=== PATIENT | male | born 1970 | race Hispanic/Latino ===

== ENCOUNTER 2020-03-30 11:35 | Emergency (ER) | payer OTHER ==
[2020-03-30] MEDS ORDERED: Aspirin Chewable 81 MG TAB ONE (11:51)
[2020-03-30] MEDS ORDERED: Dexamethasone 10 MG/ML VIAL ONE (12:08)
[2020-03-30 12:26] LABS: #Lymphocytes 1.7 thou/uL (1.20-3.40); #Monocytes 0.6 thou/uL (0.11-0.59); #Neutrophils 2.7 thou/uL (1.40-6.50); %Basophils 0.7 % (0.0-1.0); %Eosinophils 0.3 % (0.0-10.0); %Lymphocytes 34.1 % (21.0-51.0); %Monocytes 11.4 % (0.0-10.0); %Neutrophils 53.6 % (42.0-75.0); Hemoglobin 17.4 g/dL (14.0-18.0); Mean Corpuscular HGB CONC 33.3 g/dL (32.0-36.0); Mean Platelet Volume 8.3 fL (7.4-10.4); Platelet Count 156 thou/uL (130-400); RBC Distribution Width 12.6 % (11.5-14.5); Red Blood Cell (RBC) Count 5.62 mill/uL (4.70-6.10); White Blood Cell (WBC) Count 5.1 thou/uL (4.8-10.8)
[2020-03-30 12:49] LABS: ALT (SGPT) 42 U/L (8-55); AST (SGOT) 23 U/L (5-34); Albumin 4.3 g/dL (3.5-5.0); Alkaline Phosphatase 67 U/L (40-110); Anion Gap 12 mmol/L (10-20); BUN (Urea Nitrogen) 11 mg/dL (8.9-20.6); Bilirubin, Total 0.6 mg/dL (0.2-1.2); CK (CPK) 218 U/L (30-200); Calc. Creatinine Clearance 0 mL/min (70-130); Calcium 8.7 mg/dL (7.8-10.44); Carbon Dioxide 25 mmol/L (22-29); Chloride 100 mmol/L (98-107); Estimated GFR-MDRD Greater than 90; Globulin 3.4 g/dL (2.4-3.5); Glucose 97 mg/dL (70-105); Lipase 42 U/L (8-78); Potassium 3.9 mmol/L (3.5-5.1); Protein, Total 7.7 g/dL (6.0-8.3); Sodium 133 mmol/L (136-145)
--- NOTE | 2020-03-30 12:54 | RAD ---
RADIOGRAPH CHEST 1 VIEW: DATE: 03/30/2020 HISTORY: 50-year-old male with chest pain. COMPARISON: None FINDINGS: There are no consolidations, pulmonary edema, pneumothorax, or cardiomegaly. The lateral costophrenic angles are sharp. There is a small focal linear short density at the left lower lung zone which is nonspecific, but possibly representing scar. IMPRESSION: No definitive evidence of acute cardiopulmonary disease.
--- NOTE | 2020-03-30 14:59 | CT ---
Exam: CT angiogram of the chest HISTORY: Elevated d-dimer COMPARISON: None TECHNIQUE: CT angiogram of the chest is performed in the axial plane. Three-dimensional reformatted i mages are submitted for interpretation FINDINGS: Mediastinum: No mass, lymphadenopathy or hematoma. HEART: Normal size. No significant pericardial fluid. Aorta: No aneurysm or dissection Upper solid abdominal viscera: Hypoattenuation of the liver hepatic steatosis. Possible parapelvic cy st in the upper pole the right kidney, incompletely evaluated Trachea and central bronchi: Patent Pleural spaces: No effusion Lung parenchyma: Peripheral groundglass opacities. Pneumothorax: None Osseous structures: No lytic or blastic lesions Pulmonary arteries:Adequate contrast opacification pulmonary arterial system to the level of the loba r arteries. No filling defect to suggest thromboembolism. Limited evaluation the segmental and subsegmental arteries due to timing of contrast bolus. IMPRESSION: 1. Limited evaluation pulmonary arterial system to the level of the lobar arteries. No filling defect to suggest thromboembolism 2. Predominantly peripheral groundglass opacities which is often seen in patients with atypical pneum onia, including COVID. Correlate clinically. 3. Possible parapelvic cyst in the upper pole of the left kidney, incompletely evaluated. Renal ultra sound as warranted.
[2020-03-30 15:32] LABS: Troponin I 0.014 ng/mL (< 0.028)
== END 2020-03-30 16:15 | disposition home or self-care (01) ==
LOC: ERS 11:35
DX: U07.1 COVID-19 (principal); R07.89 Other chest pain
CPT/HCPCS: 36415; 71045; 71275; 80053; 82550; 83690; 83880; 84484; 85025; 85379; 93005; 96361; 96374; J1100

== ENCOUNTER 2020-04-02 07:01 | Observation (INO) | payer OTHER ==
--- NOTE | 2020-04-02 07:35 | RAD ---
Chest one view HISTORY: Pelvic pneumonia. COMPARISON: 03/30/2020. FINDINGS: Cardiac silhouette is magnified by projection. Pulmonary vasculature upper limits of normal and accentuated by shallow inspiration. Ill-defined patchy areas of predominantly peripheral groundglass parenchymal opacity throughout each lung have progressed since the prior exam. No lobar consolidation or pleural fluid evident IMPRESSION : Interval progression of multifocal bilateral pneumonitis, consistent with worsening of COVID pneumoni a.
[2020-04-02 08:55] LABS: Hemoglobin 17.2 g/dL (14.0-18.0); Mean Corpuscular HGB CONC 33.8 g/dL (32.0-36.0); Mean Corpuscular Hemoglobin 31.3 pg (27.0-31.0); Mean Corpuscular Volume 92.5 fL (78.0-98.0); Mean Platelet Volume 7.6 fL (7.4-10.4); Platelet Count 223 thou/uL (130-400); RBC Distribution Width 12.5 % (11.5-14.5); White Blood Cell (WBC) Count 12.6 thou/uL (4.8-10.8)
[2020-04-02] MEDS ORDERED: Enoxaparin Sodium 80 MG/0.8 ML SYRINGE ONE (09:02)
[2020-04-02] MEDS ORDERED: cefTRIAXone\\ROCEPHIN 2 GM VIAL ONE (09:02)
[2020-04-02 09:11] LABS: ALT (SGPT) 38 U/L (8-55); AST (SGOT) 21 U/L (5-34); Albumin 4.1 g/dL (3.5-5.0); Alkaline Phosphatase 65 U/L (40-110); Anion Gap 14 mmol/L (10-20); BUN (Urea Nitrogen) 12 mg/dL (8.9-20.6); Bilirubin, Total 0.9 mg/dL (0.2-1.2); Calc. Creatinine Clearance 0 mL/min (70-130); Calcium 9.2 mg/dL (7.8-10.44); Carbon Dioxide 24 mmol/L (22-29); Chloride 97 mmol/L (98-107); Estimated GFR-MDRD 88; Globulin 3.6 g/dL (2.4-3.5); Glucose 153 mg/dL (70-105); Potassium 4.1 mmol/L (3.5-5.1); Protein, Total 7.7 g/dL (6.0-8.3); Sodium 131 mmol/L (136-145)
[2020-04-02] MEDS ORDERED: Enoxaparin Sodium 100 MG/ML SYRINGE ONE (09:13)
[2020-04-02 09:21] LABS: Band 18 % (5-11); Lymphocytes 4 % (21-51); MDiff Complete? YES; Monocytes 1 % (0-10); Neutrophil 76 % (42-75); Platelet Morphology Comment Appears Adequate; RBC Morphology Normal; Reactive Lymphocytes 1 % (0-10); Vacuoles SLIGHT
[2020-04-02] MEDS ORDERED: Acetaminophen 500 MG TAB ONE (10:04)
[2020-04-02] MEDS ORDERED: Azithromycin 500 MG VIAL ONE (10:04)
[2020-04-02 12:03] VITALS: BMI 31.1
[2020-04-02] MEDS ORDERED: Bisacodyl 5 MG TAB PO PRN (13:33)
[2020-04-02] MEDS ORDERED: Calcium Carbonate 500 MG ChewTAB PO PRN (13:33)
[2020-04-02] MEDS ORDERED: Senokot S 8.6-50 MG TAB PO PRN (13:33)
[2020-04-02] MEDS ORDERED: Ondansetron PF 4 MG/2 ML Vial IVP PRN (13:33)
--- NOTE | 2020-04-02 13:35 | PDOC.HOSPP ---
- Objective Vital Signs & Weight: Vital Signs (12 hours) Temp Pulse Resp BP Pulse Ox 04/02/20 11:25 99.3 F 73 24 H 137/84 95 Weight Weight 223 lb 8 oz Result Diagrams: 04/02/20 08:28 04/02/20 08:28 Hosp A/P - Plan Chest X ray: worsening bilateral pneumonia
--- NOTE | 2020-04-02 18:35 | PDOC.HHP ---
Hospitalist HPI - History of Present Illness hypoxia History of Present Illness: This is a 50 year old male with no past medical history who presented to the ER with hypoxia. The patient originally presented with fevers and myalgias to the ER two days ago. He tested positive for COVID and was prescribed azithromycin and plaquenil and prednisone 20 mg and discharged home since he was not hypoxic. The patient states that yesterday he spiked a fever to 103 and this morning was unable to get his oxygen saturation above 88%. He reports shortness of breath with exertion, fatigue, and an intermittent dry cough. He denies runny nose or sore throat. He denies abdominal pain, nausea or vomiting. He denies leg swelling, recent travel history, orthopnea. ED Course: The patient presented to the ER with normal vital signs. His labs showed a WBC of 12.6, sodium was 131. Chest Xray showed worsening pneumonia. The patient was given ceftriaxone, azithromycin, therapeutic lovenox, tylenol and admitted for further workup. Hospitalist ROS - Review of Systems Constitutional: reports: fever, chills Eyes: denies: pain, vision change ENT: denies: ear pain, ear discharge Respiratory: reports: cough (dry), shortness of breath Cardiovascular: denies: chest pain, palpitations, orthopnea Gastrointestinal: denies: nausea, vomiting, abdominal pain, diarrhea Genitourinary: denies: dysuria, frequency Musculoskeletal: denies: neck pain, shoulder pain, arm pain Skin: denies: rash, lesions Neurological: denies: weakness, numbness Hospitalist History - Past Surgical History Other Surgical History: None - Family History Other Family History: No medical problems in the family - Social History Smoking Status: Never smoker - Exam General Appearance: NAD, awake alert Eye: PERRL, anicteric sclera ENT: normocephalic atraumatic, no oropharyngeal lesions Neck: no JVD Heart: RRR, no murmur, no gallops, no rubs Respiratory - other findings: diminished breath sounds bilaterally Gastrointestinal: soft, non-tender, non-distended, normal bowel sounds Extremities: no cyanosis, no clubbing, no edema Skin: normal turgor, no lesions, no rashes Hospitalist Results - Labs Result Diagrams: 04/02/20 08:28 04/02/20 08:28 Lab results: WBC 12.6 thou/uL (4.8-10.8) H 04/02/20 08:28 Hgb 17.2 g/dL (14.0-18.0) 04/02/20 08:28 Hct 50.9 % (42.0-52.0) 04/02/20 08:28 MCV 92.5 fL (78.0-98.0) 04/02/20 08:28 Plt Count 223 thou/uL (130-400) 04/02/20 08:28 Band Neuts % (Manual) 18 % (5-11) H 04/02/20 08:28 Sodium 131 mmol/L (136-145) L 04/02/20 08:28 Potassium 4.1 mmol/L (3.5-5.1) 04/02/20 08:28 Chloride 97 mmol/L (98-107) L 04/02/20 08:28 Carbon Dioxide 24 mmol/L (22-29) 04/02/20 08:28 BUN 12 mg/dL (8.9-20.6) 04/02/20 08:28 Creatinine 0.91 mg/dL (0.7-1.3) 04/02/20 08:28 Glucose 153 mg/dL (70-105) H 04/02/20 08:28 Lactic Acid 1.1 mmol/L (0.5-2.2) 04/02/20 08:28 Calcium 9.2 mg/dL (7.8-10.44) 04/02/20 08:28 Total Bilirubin 0.9 mg/dL (0.2-1.2) 04/02/20 08:28 AST 21 U/L (5-34) 04/02/20 08:28 ALT 38 U/L (8-55) 04/02/20 08:28 Alkaline Phosphatase 65 U/L (40-110) 04/02/20 08:28 Troponin I 0.011 ng/mL (< 0.028) 04/02/20 08:28 Serum Total Protein 7.7 g/dL (6.0-8.3) 04/02/20 08:28 Albumin 4.1 g/dL (3.5-5.0) 04/02/20 08:28 Hospitalist H&P A/P - Plan Plan: This is a 50 year old male patient with no past medical history who presents with worsening COVID pneumonia Acute hypoxic respiratory failure secondary to COVID pneumonia - chest X ray shows worsening bilateral pneumonia. WBC up to 12.6 - D dimer elevated, CTA showed no PE two days ago - continue IV ceftriaxone and azithromycin - start dexamethasone - consider remdesivir if no improvement Left kidney cyst - noted on CTA - renal US as an outpatient Hyponatremia - sodium 131, got 1L IV fluid in the ER. Repeat BMP in am DVT prophylaxis: heparin SC Code status: full code
[2020-04-02] MEDS ORDERED: Albuterol Sulfate 1.25 MG/3 ML NEB NEB PRN (18:37)
[2020-04-02] MEDS ORDERED: Dexamethasone 4 MG TAB PO SCH (18:45)
[2020-04-02] MEDS: Heparin 5,000 UNITS/ML VIAL SC SCH (21:01)
[2020-04-02] MEDS: Albuterol 200 PUFF (6.7GM INHALER) INH PRN (21:09)
[2020-04-02] MEDS: Acetaminophen 325 MG TAB PO PRN (21:16)
[2020-04-02] MEDS: Sodium Chloride 0.9% 1,000 ML IV SCH (22:28)
[2020-04-03 05:38] LABS: #Lymphocytes 1.3 thou/uL (1.20-3.40); #Monocytes 0.6 thou/uL (0.11-0.59); #Neutrophils 11.7 thou/uL (1.40-6.50); %Basophils 0.1 % (0.0-1.0); %Eosinophils 0.1 % (0.0-10.0); %Lymphocytes 9.3 % (21.0-51.0); %Monocytes 4.3 % (0.0-10.0); %Neutrophils 86.2 % (42.0-75.0); Hemoglobin 15.1 g/dL (14.0-18.0); Mean Corpuscular HGB CONC 32.7 g/dL (32.0-36.0); Mean Corpuscular Hemoglobin 30.4 pg (27.0-31.0); Mean Corpuscular Volume 92.9 fL (78.0-98.0); Mean Platelet Volume 8.1 fL (7.4-10.4); Platelet Count 253 thou/uL (130-400); RBC Distribution Width 12.7 % (11.5-14.5); Red Blood Cell (RBC) Count 4.97 mill/uL (4.70-6.10); White Blood Cell (WBC) Count 13.5 thou/uL (4.8-10.8)
[2020-04-03 06:05] LABS: Anion Gap 16 mmol/L (10-20); BUN (Urea Nitrogen) 12 mg/dL (8.9-20.6); Calc. Creatinine Clearance 147 mL/min (70-130); Calcium 8.3 mg/dL (7.8-10.44); Carbon Dioxide 18 mmol/L (22-29); Chloride 101 mmol/L (98-107); Estimated GFR-MDRD Greater than 90; Glucose 149 mg/dL (70-105); Potassium 4.5 mmol/L (3.5-5.1); Sodium 130 mmol/L (136-145)
[2020-04-03] MEDS: cefTRIAXone\\ROCEPHIN 1 GM in Sodium Chloride 0.9% 100 ML IVPB SCH (07:52)
[2020-04-03] MEDS: Heparin 5,000 UNITS/ML VIAL SC SCH ×3 (07:53→19:42)
[2020-04-03] MEDS: Azithromycin 250 MG TAB PO SCH (07:53)
[2020-04-03] MEDS: Dexamethasone 4 MG TAB PO SCH (07:53)
[2020-04-03] MEDS: Sodium Chloride 0.9% 1,000 ML IV SCH ×2 (10:39→23:28)
[2020-04-03] MEDS: Albuterol 200 PUFF (6.7GM INHALER) INH PRN (15:25)
--- NOTE | 2020-04-03 16:57 | PDOC.HOSPP ---
- Subjective Encounter Date: 04/03/20 Encounter Time: 10:00 Subjective: The patient states he feels much better. While walking to the bathroom he still feels fatigued and weak and has to stop and catch his breath. His cough has improved He feels the IV fluids gave him a little more energy. - Objective Vital Signs & Weight: Vital Signs (12 hours) Temp Pulse Resp BP BP Pulse Ox 04/03/20 15:25 99.4 F 79 20 149/87 H 100 04/03/20 11:40 99.2 F 78 20 142/87 H 97 04/03/20 08:05 98.3 F 84 20 129/76 98 04/03/20 05:10 98.4 F 72 18 112/77 100 Weight Weight 223 lb 8 oz I&O: 04/02/20 04/03/20 04/04/20 06:59 06:59 06:59 Intake Total 750 1574 Output Total 600 Balance 150 1574 Result Diagrams: 04/03/20 04:41 04/03/20 04:41 Hospitalist ROS - Review of Systems Constitutional: denies: fever, chills - Medication Medications: Active Medications Generic Name Dose Route Start Last Admin Trade Name Freq PRN Reason Stop Dose Admin Acetaminophen 650 mg 04/02/20 13:33 04/02/20 21:16 Tylenol PO 650 mg Q4H PRN Administration Headache/Fever/Mild Pain (1-3) Albuterol Sulfate 1 puff 04/02/20 18:51 04/02/20 21:09 Proventil Hfa INH 2 inh Q8H PRN Administration Wheezing Azithromycin 250 mg 04/03/20 09:00 04/03/20 07:53 Zithromax PO 04/06/20 09:01 250 mg DAILY DIEUDONNE Administration Dexamethasone 6 mg 04/03/20 09:00 04/03/20 07:53 Decadron PO 6 mg DAILY DIEUDONNE Administration Heparin Sodium (Porcine) 5,000 units 04/02/20 21:00 04/03/20 15:16 Heparin SC 5,000 units TID DIEUDONNE Administration Ceftriaxone Sodium 1 gm/ 100 mls @ 200 mls/hr 04/03/20 09:00 04/03/20 07:52 Sodium Chloride IVPB 100 mls Q24HR DIEUDONNE Administration Sodium Chloride 1,000 mls @ 75 mls/hr 04/02/20 21:45 07/10/20 10:39 Normal Saline 0.9% IV 1,000 mls .[id number] DIEUDONNE Administration - Exam General Appearance: NAD, awake alert Eye: PERRL, anicteric sclera ENT: normocephalic atraumatic, no oropharyngeal lesions Neck: no JVD Heart: RRR, no murmur, no gallops, no rubs Respiratory: CTAB, no wheezes, no rales, no ronchi Gastrointestinal: soft, non-tender, non-distended, normal bowel sounds Extremities: no cyanosis, no clubbing, no edema Skin: normal turgor, no lesions, no rashes Hosp A/P - Plan This is a 50 year old male patient with no past medical history who presents with worsening COVID pneumonia Acute hypoxic respiratory failure secondary to COVID pneumonia - chest X ray shows worsening bilateral pneumonia. WBC up to 13, likely from steroids - D dimer elevated, CTA showed no PE on 03/31 - continue IV ceftriaxone and azithromycin, neutrophil count is higher today. Blood cultures negative. - continue dexamethasone - continue to wean oxygen to maintain sat > 92% Hyponatremia - sodium dropped to 130, was given IV fluid overnight - check urine and serum osmolarity - will stop fluids for now Left kidney cyst - noted on CTA - renal US as an outpatient Dispo: pending weaning off oxygen DVT prophylaxis: heparin SC Code status: full code
[2020-04-03] MEDS: Acetaminophen 325 MG TAB PO PRN (23:42)
[2020-04-04 05:48] LABS: Hemoglobin 14.8 g/dL (14.0-18.0); Mean Corpuscular HGB CONC 32.3 g/dL (32.0-36.0); Mean Corpuscular Volume 92.7 fL (78.0-98.0); Mean Platelet Volume 7.7 fL (7.4-10.4); Platelet Count 294 thou/uL (130-400); RBC Distribution Width 12.5 % (11.5-14.5); Red Blood Cell (RBC) Count 4.94 mill/uL (4.70-6.10); White Blood Cell (WBC) Count 14.1 thou/uL (4.8-10.8)
[2020-04-04 06:13] LABS: Anion Gap 12 mmol/L (10-20); BUN (Urea Nitrogen) 13 mg/dL (8.9-20.6); Calc. Creatinine Clearance 149 mL/min (70-130); Calcium 8.5 mg/dL (7.8-10.44); Carbon Dioxide 26 mmol/L (22-29); Chloride 102 mmol/L (98-107); Estimated GFR-MDRD Greater than 90; Glucose 122 mg/dL (70-105); Potassium 4.4 mmol/L (3.5-5.1); Sodium 136 mmol/L (136-145)
[2020-04-04] MEDS: Dexamethasone 4 MG TAB PO SCH (09:31)
[2020-04-04] MEDS: Heparin 5,000 UNITS/ML VIAL SC SCH ×3 (09:32→20:21)
[2020-04-04] MEDS: cefTRIAXone\\ROCEPHIN 1 GM in Sodium Chloride 0.9% 100 ML IVPB SCH (09:32)
[2020-04-04] MEDS: Azithromycin 250 MG TAB PO SCH (09:32)
[2020-04-04] MEDS: Acetaminophen 325 MG TAB PO PRN ×2 (09:46→15:04)
[2020-04-04] MEDS: Sodium Chloride 0.9% 1,000 ML IV SCH (12:15)
[2020-04-04 12:41] LABS: SARS-CoV-2 MS2 Positive; SARS-CoV-2 N Gene Positive; SARS-CoV-2 S Gene Positive; SARS-CoV-2 orf1ab Positive
--- NOTE | 2020-04-04 14:10 | PDOC.HOSPP ---
- Subjective Encounter Date: 04/04/20 Subjective: The patient is complaining of headache and reported fever last night. He still feels short of breath with minimal activity. At rest, he saturating well and is in no distress. - Objective Vital Signs & Weight: Vital Signs (12 hours) Temp Pulse Resp BP BP Pulse Ox 04/04/20 11:49 99.5 F 84 22 H 143/93 H 96 04/04/20 09:45 102.1 F H 79 20 166/88 H 97 04/04/20 03:59 98.7 F 67 17 148/96 H 100 Weight Weight 223 lb 8 oz I&O: 04/03/20 04/04/20 04/05/20 06:59 06:59 06:59 Intake Total 750 4548 Output Total 600 375 Balance 150 4173 Result Diagrams: 04/04/20 05:32 04/04/20 05:32 Hospitalist ROS - Medication Medications: Active Medications Generic Name Dose Route Start Last Admin Trade Name Freq PRN Reason Stop Dose Admin Acetaminophen 650 mg 04/02/20 13:33 04/04/20 09:46 Tylenol PO 650 mg Q4H PRN Administration Headache/Fever/Mild Pain (1-3) Albuterol Sulfate 1 puff 04/02/20 18:51 04/03/20 15:25 Proventil Hfa INH 1 inh Q8H PRN Administration Wheezing Azithromycin 250 mg 04/03/20 09:00 04/04/20 09:32 Zithromax PO 04/06/20 09:01 250 mg DAILY DIEUDONNE Administration Dexamethasone 6 mg 04/03/20 09:00 04/04/20 09:31 Decadron PO 6 mg DAILY DIEUDONNE Administration Heparin Sodium (Porcine) 5,000 units 04/02/20 21:00 04/04/20 09:32 Heparin SC 5,000 units TID DIEUDONNE Administration Ceftriaxone Sodium 1 gm/ 100 mls @ 200 mls/hr 04/03/20 09:00 04/04/20 09:32 Sodium Chloride IVPB 100 mls Q24HR DIEUDONNE Administration Sodium Chloride 1,000 mls @ 75 mls/hr 04/02/20 21:45 04/04/20 12:15 Normal Saline 0.9% IV Not Given .[id number] DIEUDONNE - Exam General Appearance: awake alert ENT: normocephalic atraumatic Neck: supple, no JVD Heart: RRR Respiratory: normal chest expansion, no tachypnea Neurological: cranial nerve grossly intact, no focal deficits Hosp A/P - Plan Acute hypoxic respiratory failure secondary to COVID pneumonia - chest X ray shows worsening bilateral pneumonia. - D dimer elevated, CTA showed no PE on 03/31 - continue IV ceftriaxone and azithromycin, neutrophil count is higher today. Blood cultures negative. - continue dexamethasone - continue to wean oxygen to maintain sat > 92% -The patient was encouraged to maintain some degree of ambulation inside his room. Hyponatremia Resolved. Left kidney cyst - noted on CTA - renal US as an outpatient Dispo: pending weaning off oxygen DVT prophylaxis: heparin SC Code status: full code
[2020-04-05] MEDS: Sodium Chloride 0.9% 1,000 ML IV SCH (08:05)
[2020-04-05] MEDS: Heparin 5,000 UNITS/ML VIAL SC SCH (08:06)
[2020-04-05] MEDS: Dexamethasone 4 MG TAB PO SCH (08:06)
[2020-04-05] MEDS: Azithromycin 250 MG TAB PO SCH (08:06)
[2020-04-05] MEDS: cefTRIAXone\\ROCEPHIN 1 GM in Sodium Chloride 0.9% 100 ML IVPB SCH (08:07)
[2020-04-05] MEDS: Albuterol 200 PUFF (6.7GM INHALER) INH PRN (08:20)
[2020-04-05 09:58] VITALS: BP 150/55; TEMP 98.5
[2020-04-05] MEDS: Acetaminophen 325 MG TAB PO PRN (12:39)
--- NOTE | 2020-04-06 06:08 | DIS ---
DATE OF ADMISSION: 04/02/2020 DATE OF DISCHARGE: 04/05/2020 DISCHARGE DIAGNOSES: 1. Acute hypoxic respiratory failure. 2. COVID-19 pneumonia. DISCHARGE MEDICATIONS: 1. Dexamethasone 6 mg orally daily for 5 days. 2. Levofloxacin 500 mg orally daily for 5 days. 3. Eliquis 2.5 mg orally twice daily for 30 days. HISTORY OF PRESENT ILLNESS AND HOSPITAL COURSE: The patient is a 50-year-old male with no significant past medical history who presented to the ER with shortness of breath and hypoxia. The patient was tested positive for COVID-19 two days prior to admission, and was prescribed hydroxychloroquine, azithromycin, and prednisone. At that time, the patient was not hypoxic; however, during the subsequent days, he started experiencing fever, shortness of breath, and his oxygen saturation was below 88 on room air at home. He presented to the ER, and was admitted to the hospital for further management. His chest x-ray showed worsening bilateral infiltrates compared to his prior presentation to the ER. D-dimer was elevated, and CTA of the chest was obtained, which did not show any pulmonary emboli. The patient was started on empiric IV antibiotics and dexamethasone, and heparin was used for DVT prophylaxis. The patient's hypoxia resolved within 3 days. He is stable to go home at this time to complete his therapy. Job ID: [id number]
== END 2020-04-05 12:48 | disposition home or self-care (01) ==
LOC: ERS 07:01 → 2SW 10:01
PROVIDERS: ADMIT Internal Medicine; ATTEND Internal Medicine
DX: U07.1 COVID-19 (principal); J12.89 Other viral pneumonia; J96.01 Acute respiratory failure with hypoxia; N28.1 Cyst of kidney, acquired; E87.1 Hypo-osmolality and hyponatremia
CPT/HCPCS: 36415; 71045; 80048; 80053; 83605; 83930; 83935; 84484; 85025; 85027; 85379; 87040; 87635; 93005; 94150; 96361; 96365; 96366; 96367; 96372; G0378; J0456; J0696; J1644; J1650; J3490; J8540; U0003

== ENCOUNTER 2020-04-10 08:42 | Outpatient (CLI) | payer OTHER ==
--- NOTE | 2020-04-10 09:03 | RAD ---
RADIOGRAPH CHEST 2 VIEW: DATE: 04/10/2020 TIME: 8:54 AM HISTORY: 50-year-old male follow-up pneumonia COMPARISON: 04/02/2020 FINDINGS: Interval improvement in the faint patchy small multiple infiltrates visualized mostly in the left mid and lower lung zones. A few residual small faint such small pulmonary densities remain bilaterally. These could represent residual pneumonia or could represent scar tissue. Lung volumes ar e again hypoinflated. Cardiomediastinal silhouette is normal. No pneumothorax or pleural effusion. IMPRESSION: Interval improvement in the mild pneumonia, probably COVID-19 viral pneumonia.
== END 2020-04-10 08:43 | disposition home or self-care (01) ==
LOC: BICRAD 08:42
PROVIDERS: ATTEND Physician Assistant
DX: J18.9 Pneumonia, unspecified organism (principal); Z91.89 Other specified personal risk factors, not elsewhere classified
CPT/HCPCS: 71046

== ENCOUNTER 2020-04-22 14:50 | Outpatient (CLI) | payer OTHER ==
--- NOTE | 2020-04-22 15:43 | RAD ---
Chest 2 views HISTORY: COVID pneumonia. Follow-up. COMPARISON: 04/10/2020. FINDINGS: Cardiac silhouette and pulmonary vasculature are unremarkable. Shallow inspiration accentua romy pulmonary markings. There is subtle residual parenchymal opacity remains at the right posterolateral lung base and the le ft upper lateral lung. No lobar consolidation, pneumothorax, or pleural fluid are evident. IMPRESSION : Continued improvement. Minimal residual bilateral infiltrates No new abnormalities.
== END 2020-04-22 14:51 | disposition home or self-care (01) ==
LOC: BICRAD 14:50
PROVIDERS: ATTEND Physician Assistant
DX: U07.1 COVID-19 (principal); R91.8 Other nonspecific abnormal finding of lung field
CPT/HCPCS: 71046

== ENCOUNTER 2020-07-31 16:30 | Outpatient (CLI) | payer OTHER | END 2020-07-31 16:31 | disposition home or self-care (01) | LOC: SLEEPLAB 16:30 | PROVIDERS: ATTEND Family Medicine | DX: G47.9 Sleep disorder, unspecified (principal); G47.33 Obstructive sleep apnea (adult) (pediatric); R53.82 Chronic fatigue, unspecified; R06.83 Snoring; F41.9 Anxiety disorder, unspecified; G47.00 Insomnia, unspecified; I10 Essential (primary) hypertension; J30.2 Other seasonal allergic rhinitis; E66.9 Obesity, unspecified; Z68.32 Body mass index [BMI] 32.0-32.9, adult | CPT/HCPCS: 95806 ==